=== PATIENT | male | born 1950 | race Caucasian/White ===

== ENCOUNTER 2016-07-29 07:59 | Emergency (ER) | payer MEDICARE, OTHER ==
--- NOTE | 2016-07-29 09:20 | C.PDOC ---
History Of Present Illness 66 y/o male presents to the ED with complains of dizziness and feeling unsteady on his feet. Pt fell 4 days ago after had been drinking and fell in the street hitting head near right orbit. Denies LOC. Pt was assisted home safely however reports has been sleeping more and has difficulty balancing since the fall. Pt states he has been "walking in zigzags." Denies headache, chest pain, abdominal pain, SOB, nausea, vomiting, fever, chills or any other complaints. Time Seen by Provider: 07/29/16 08:45 Chief Complaint (Nursing): Dizziness/Lightheaded History Per: Patient History/Exam Limitations: no limitations Onset/Duration Of Symptoms: Days Current Symptoms Are (Timing): Still Present Severity: Moderate Recent travel outside of the [place]: No - Symptoms Of CVA Recent Head Trauma: Yes Past Medical History Reviewed: Historical Data, Nursing Documentation, Vital Signs Vital Signs: Last Vital Signs Temp 98.2 F 07/29/16 10:54 Pulse 55 L 07/29/16 10:54 Resp 18 07/29/16 10:54 BP 143/83 07/29/16 10:54 Pulse Ox 97 07/29/16 10:54 Family History: States: Unknown Family Hx - Social History Hx Tobacco Use: No Hx Alcohol Use: Yes Hx Substance Use: No - Immunization History Hx Tetanus Toxoid Vaccination: No Hx Influenza Vaccination: Yes Hx Pneumococcal Vaccination: Yes Review Of Systems Except As Marked, All Systems Reviewed And Found Negative. Constitutional: Negative for: Fever, Chills Cardiovascular: Negative for: Chest Pain Respiratory: Negative for: Shortness of Breath Gastrointestinal: Negative for: Nausea, Vomiting, Abdominal Pain Neurological: Positive for: Dizziness, Other (unsteady gait). Negative for: Headache Physical Exam - Physical Exam Appears: Non-toxic, No Acute Distress Skin: Warm, Dry, No Rash Head: Normacephalic, No Laceration, Other (ecchymosis surrounding right orbit with abrasion) Eye(s): bilateral: PERRL, EOMI Ear(s): Bilateral: Normal Nose: Normal Oral Mucosa: Moist Throat: Normal, No Erythema Neck: Normal ROM, No Midline Cervical Tenderness, No Paracervical Tenderness, Supple Chest: Symmetrical Cardiovascular: Rhythm Regular, No Murmur Respiratory: Normal Breath Sounds, No Rales, No Rhonchi, No Wheezing Gastrointestinal/Abdominal: Normal Exam, Soft, No Tenderness Extremity: Normal ROM Extremity: Bilateral: Atraumatic Neurological/Psych: Oriented x3, Normal Speech, Normal Cognition, Normal Cranial Nerves, Normal Motor, Normal Sensation Gait: Unsteady (staggering gait) ED Course And Treatment - Laboratory Results Result Diagrams: 07/29/16 09:22 07/29/16 09:22 O2 Sat by Pulse Oximetry: 95 (room air) Pulse Ox Interpretation: Normal - CT Scan/US CT head Other Rad Studies (CT/US): Read By Radiologist, Radiology Report Reviewed CT/US Interpretation: Accession No. : [id number]. Patient Name / ID : LORENA AC / [id number]. Exam Date : 07/29/2016 09:43:05 ( Approved ). Study Comment : Sex / Age : M / 66Y. Creator : Petra Brandon MD. Dictator : Petra Brandon MD. Rehabilitation Director : Jboss Architect : Petra Brandon MD. Approver2 : Report Date : 07/29/2016 10:19:32. My Comment : . PROCEDURE: CT HEAD WITHOUT CONTRAST. HISTORY: Headache. COMPARISON: None available. TECHNIQUE: Axial computed tomography images were obtained through the head/brain without intravenous contrast. Radiation dose: Total exam DLP = 787.33 mGy-cm. This CT exam was performed using one or more of the following dose reduction techniques: Automated exposure control, adjustment of the mA and/or kV according to patient size, and/or use of iterative reconstruction technique. FINDINGS: HEMORRHAGE: No intracranial hemorrhage. BRAIN: Diffuse atrophy with prominence of the ventricles and sulci noted. No mass effect or edema. Intracranial atherosclerotic calcifications. Scattered white matter hypodensities, which are nonspecific, but often seen with chronic microvascular ischemic disease. Please note that MRI with diffusion imaging is more sensitive in the detection of acute ischemic event. VENTRICLES: No hydrocephalus. CALVARIUM: Unremarkable. PARANASAL SINUSES: Unremarkable as visualized. No significant inflammatory changes. MASTOID AIR CELLS: Unremarkable as visualized. No inflammatory changes. OTHER FINDINGS: None. IMPRESSION: Generalized atrophy. Nonspecific white matter changes. Medical Decision Making Medical Decision Making: Plan: * CT head * EKG * Labs * Iv fluids Disposition Counseled Patient/Family Regarding: Studies Performed, Diagnosis, Need For Followup - Disposition Referrals: Clarke Holt MD [Staff Provider] - Disposition: HOME/ ROUTINE Disposition Time: 14:23 Condition: SERIOUS Additional Instructions: Siga con turner doctor Y un Neurology. No tomes alcol, le esta haciendo dirk. Instructions: Alcohol Dependence (ED), Head Injury (ED) Forms: Gen Discharge Inst Ug[place]an - POA Present On Arrival: None - Clinical Impression Clinical Impression: Dizziness, Head injury - Scribe Statement The provider has reviewed the documentation as recorded by the Gusibnicole Alvarenga Provider Attestation: All medical record entries made by the Gusibnicole were at my direction and personally dictated by me. I have reviewed the chart and agree that the record accurately reflects my personal performance of the history, physical exam, medical decision making, and the department course for this patient. I have also personally directed, reviewed, and agree with the discharge instructions and disposition.
[2016-07-29 09:27] LABS: BASO % 0.7 % (0.0-2.0); EOS # 0.3 K/uL (0.0-0.7); EOS % 5.1 % (0.0-4.0); HEMATOCRIT 45.8 % (35.0-51.0); LYMPH # 1.4 K/uL (1.0-4.3); LYMPH % 25.9 % (20.0-40.0); MEAN CORPUSCULAR HEMOGLOBIN 30.7 pg (27.0-31.0); MEAN CORPUSCULAR HGB CONC 34.1 g/dL (33.0-37.0); MEAN PLATELET VOLUME 9.8 fL (7.2-11.7); MONO # 0.4 K/uL (0.0-0.8); MONO % 6.8 % (0.0-10.0); RED CELL DISTRIBUTION WIDTH 13.2 % (11.5-14.5); WHITE BLOOD COUNT 5.3 K/uL (4.8-10.8)
[2016-07-29 09:34] LABS: CHLORIDE 102 mmol/L (98-107)
[2016-07-29 09:35] LABS: POTASSIUM 3.9 mmol/L (3.6-5.2); SODIUM 140 mmol/L (132-148)
[2016-07-29 09:37] LABS: GFR AFRICAN-AMERICAN > 60
[2016-07-29 09:38] LABS: ALB/GLOB RATIO 1.3 (1.0-2.1); ALKALINE PHOSPHATASE 65 U/L (38-126); ALT/SGPT 30 U/L (21-72); AST/SGOT 29 U/L (17-59); BILIRUBIN,TOTAL 0.8 mg/dL (0.2-1.3); BLOOD UREA NITROGEN 15 mg/dL (9-20); CALCIUM 9.2 mg/dl (8.6-10.4); CARBON DIOXIDE 26 mmol/L (22-30); GLUCOSE,RANDOM 101 mg/dL (75-110); TOTAL PROTEIN 8.4 g/dL (6.3-8.3)
--- NOTE | 2016-07-29 10:21 | CT ---
PROCEDURE: CT HEAD WITHOUT CONTRAST. HISTORY: Headache COMPARISON: None available. TECHNIQUE: Axial computed tomography images were obtained through the head/brain without intravenous contrast. Radiation dose: Total exam DLP = 787.33 mGy-cm. This CT exam was performed using one or more of the following dose reduction techniques: Automated exposure control, adjustment of the mA and/or kV according to patient size, and/or use of iterative reconstruction technique. FINDINGS: HEMORRHAGE: No intracranial hemorrhage. BRAIN: Diffuse atrophy with prominence of the ventricles and sulci noted. No mass effect or edema. Intracranial atherosclerotic calcifications. Scattered white matter hypodensities, which are nonspecific, but often seen with chronic microvascular ischemic disease. Please note that MRI with diffusion imaging is more sensitive in the detection of acute ischemic event. VENTRICLES: No hydrocephalus. CALVARIUM: Unremarkable. PARANASAL SINUSES: Unremarkable as visualized. No significant inflammatory changes. MASTOID AIR CELLS: Unremarkable as visualized. No inflammatory changes. OTHER FINDINGS: None. IMPRESSION: Generalized atrophy. Nonspecific white matter changes.
[2016-07-29 10:55] VITALS: RESP 18
--- NOTE | 2016-07-29 13:49 | MRI ---
PROCEDURE: MRI BRAIN WITHOUT CONTRAST HISTORY: ataxia COMPARISON: Comparison is made to the previous same-day CT of the head without contrast TECHNIQUE: Multiplanar, multisequence MR images of the brain were obtained without intravenous contrast enhancement. FINDINGS: HEMORRHAGE: None DWI: No evidence of an acute or early subacute infarction. BRAIN PARENCHYMA: No mass effect or edema. Mild to moderate atrophy is noted. Mild white matter changes are also noted suggestive but nonspecific for chronic microvascular ischemic disease. VENTRICLES: Unremarkable. No hydrocephalus. CRANIUM: Unremarkable. ORBITS: Grossly unremarkable. PARANASAL SINUSES/MASTOIDS: Clear VASCULAR SYSTEM: Skull base flow voids intact. OTHER FINDINGS: None. IMPRESSION: No evidence of acute infarct or acute pathology in the brain. No evidence of mass lesion mass effect or midline shift. Mild atrophy and mild white matter changes likely represent chronic microvascular ischemic disease.
[2016-07-29 14:46] VITALS: BP 140/80; PULSE 62; TEMP 98; O2SAT 100
--- NOTE | 2016-07-30 11:04 | CARD ---
APPROVED REPORT EKG Measurement Heart [id number] <Conclusion> Normal sinus rhythm Normal ECG
== END 2016-07-29 14:46 | disposition home or self-care (01) ==
LOC: C.ER 07:59
DX: R42 Dizziness and giddiness (principal); S05.11XA Contusion of eyeball and orbital tissues, right eye, initial encounter; W18.30XA Fall on same level, unspecified, initial encounter

== ENCOUNTER 2017-05-23 21:35 | Emergency (ER) | payer MEDICARE, OTHER ==
[2017-05-23 21:48] VITALS: BP 127/85; PULSE 96; RESP 20; TEMP 98; O2SAT 99
== END 2017-05-23 21:43 | disposition left against medical advice (07) ==
LOC: C.ER 21:35
DX: Z02.89 Encounter for other administrative examinations (principal); F19.10 Other psychoactive substance abuse, uncomplicated

== ENCOUNTER 2017-10-19 09:46 | Day surgery (SDC) | payer MEDICARE, OTHER ==
[2017-08-26 09:55] VITALS: BMI 26.5
[2017-10-19] MEDS ORDERED: Gentamicin 160 MG in Sodium Chloride 0.9% 100 ML IVPB STA (13:32)
[2017-10-19] MEDS ORDERED: Ciprofloxacin 400mg/200ml D5W 400 MG/200 ML BAG IVPB ONE (13:33)
[2017-10-19] MEDS ORDERED: Propofol 10 mg/ml Inj (20 ML) ONE (13:41)
[2017-10-19] MEDS ORDERED: Midazolam 2 MG/2 ML VIAL ONE (13:41)
--- NOTE | 2017-10-19 14:41 | PCM.SURG1 ---
Surgeon's Initial Post Op Note - Surgeon's Notes Surgeon: Simona Member Of Technical Staff: michelle Type of Anesthesia: General LMA Anesthesia Administered By: staff Pre-Operative Diagnosis: BPH/Urinary retention Operative Findings: same Post-Operative Diagnosis: same Operation Performed: TULAP Specimen/Specimens Removed: NA Estimated Blood Loss: EBL {In ML}: 0 Blood Products Given: N/A Drains Used: No Drains Post-Op Condition: Good Date of Surgery/Procedure: 10/19/17 Time of Surgery/Procedure: 14:41
[2017-10-19] MEDS ORDERED: HYDROmorphone 0.5 mg/0.5 ml ISec IVP PRN (14:46)
[2017-10-19 16:45] VITALS: BP 132/72; PULSE 80; RESP 18; TEMP 97; O2SAT 100
--- NOTE | 2017-10-20 01:51 | OP ---
PROCEDURE DATE: 10/19/2017 PREOPERATIVE DIAGNOSES: Benign prostatic hypertrophy and urinary retention due to bladder outlet obstruction. POSTOPERATIVE DIAGNOSIS: Benign prostatic hypertrophy and urinary retention due to bladder outlet obstruction. FINDINGS: Benign prostatic hypertrophy and urinary retention due to bladder outlet obstruction. SURGEON: Nitin Jarvis Jr., MD DESCRIPTION OF PROCEDURE: As follows: Prior to the procedure, a detailed informed consent was obtained from the patient reviewing all risks and complications of GreenLight laser, alternate methods of treating BPH with urinary retention. The patient elected to proceed with the procedure and accepted the risks. He was brought into the room and a time-out was taken according to the rules and regulations of [facility]. Shirley catheter was removed. The patient was draped and prepped in the usual manner. After receiving prophylactic antibiotics, he was cystoscoped with a laser cystoscope. The pendulous and membranous urethra was normal. The prostatic urethra showed trilobar hypertrophy with significant outlet obstruction. The bladder was entered atraumatically. There was +3 to 4 trabeculation of bladder with pseudo diverticulum formation. This was confirmed from the previous cystoscopic evaluation. The laser element was inserted into the cystoscope, and vaporization of the prostate was begun from just distal to the bladder neck at 11 o' clock and carried to just proximal to the verumontanum. In the left lateral lobe, the roof tissue and the base tissue were vaporized in the similar fashion. No injury occurred to either ureteral orifices or the verumontanum or external sphincter. There was no significant bleeding. Once the excellent voiding trial was achieved, the bladder was filled. The scope was removed, and a #20 two-way 5 mL catheter was inserted and inflated with a normal amount of saline. Clear irrigant fluid drainage ensured. The patient tolerated this procedure well. He will be discharged on Flomax, Proscar and Cipro. Follow up in our office tomorrow for catheter removal. He has been given detailed postoperative instructions on complication management. Nitin Jarvis MD
== END 2017-10-19 16:47 | disposition home or self-care (01) ==
LOC: C.SDS 09:46
PROVIDERS: ATTEND Urology
DX: N40.1 Benign prostatic hyperplasia with lower urinary tract symptoms (principal); N32.0 Bladder-neck obstruction; R33.8 Other retention of urine; N32.89 Other specified disorders of bladder; N32.3 Diverticulum of bladder
CPT/HCPCS: 52648; J0744; J1580